=== PATIENT | female | born 1975 | race Caucasian/White ===

== ENCOUNTER 2019-04-03 12:59 | Outpatient (CLI) | payer OTHER, BC, SELFPAY ==
--- NOTE | ~2019-04-03 | NM_ITS ---
EXAMINATION: NM hepatobiliary w pharm DATE: 04/03/2019 15:11 INDICATION: Unspecified abdominal pain. COMPARISON: Head CT 03/27/2019 TECHNIQUE: 4.7 mCi Tc-99m mebrofenin (Choletec) was administered intravenously. Scintigraphic images of the abdomen were obtained for one hour. Then, 1.59 mcg sincalide (Kinevac) IV was administered, a nd imaging was continued for 30 minutes. FINDINGS: There is normal clearance of radiotracer from the blood pool. There is homogeneous tracer u ptake by the liver. Activity progresses to the bowel and gallbladder. Gallbladder ejection fraction (GBEF) was 13%. Note that most patients with gallbladder dysfunction have GBEF < 35%, which overlaps with the broad normal range of 10-90%. IMPRESSION: 1. Gallbladder ejection fraction in the lower range of normal. Note that this value overlaps with th e range of values that may be seen with gallbladder dysfunction and/or chronic cholecystitis if there is appropriate clinical correlation. Reviewed, dictated and finalized at location A. 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 Gallbladder ejection fraction in the lower range of normal. Note that this value overlaps with the range of values that may be seen with gallbladder dysfu nction and/or chronic cholecystitis if there is appropriate clinical correlatio nElda
== END 2019-04-03 13:00 | disposition home or self-care (01) ==
PROVIDERS: PCP Family Medicine; Visit Provider Nurse Practitioner Family
DX: R10.9 Unspecified abdominal pain (principal); R14.0 Abdominal distension (gaseous)
CPT/HCPCS: 78227; A9537; J2805

== ENCOUNTER → 2019-04-12 07:46 | Outpatient (CLI) | payer OTHER, BC, SELFPAY ==
--- NOTE | ~2019-04-12 | US_ITS ---
US abdomen limited DATE: 04/12/2019 08:27 INDICATION: Right upper quadrant abdominal pain, back pain. Constipation. TECHNIQUE: Real-time imaging of the liver, pancreas, gallbladder areas COMPARISON: 03/27/2019 CT abdomen pelvis 04/03/2019 radionuclide hepatobiliary scan FINDINGS: No hepatic or pancreatic space-occupying mass lesion is evident. Normal hepatic portal veno us flow direction. No gallstones or gallbladder wall thickening or abnormal pericholecystic fluid collection. Negative s onographic Trevino's sign. The common bile duct measures 3.4 mm, normal. IMPRESSION: Normal examination Reviewed, dictated and finalized at Location A. Reviewed, dictated and finalized at location B. 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
== END ==
PROVIDERS: Visit Provider Surgery
DX: R10.11 Right upper quadrant pain (principal)
CPT/HCPCS: 76705

== ENCOUNTER 2019-04-30 15:19 | Outpatient (CLI) | payer OTHER, BC, SELFPAY ==
[2019-04-30 15:52] LABS: Alanine Aminotransferase 22 U/L (4-35); Albumin Level 4.9 g/dL (3.5-5.1); Alkaline Phosphatase 70 U/L (38-126); Amylase 86 U/L (30-110); Aspartate Amino Transferase 31 U/L (14-36); Bilirubin,Total 0.4 mg/dL (0.2-1.3); Lipase 173 U/L (23-300)
== END 2019-04-30 15:20 | disposition home or self-care (01) ==
LOC: ANHSURGERY 15:24
PROVIDERS: PCP Family Medicine; Visit Provider Surgery
DX: K81.1 Chronic cholecystitis (principal); Z01.812 Encounter for preprocedural laboratory examination
CPT/HCPCS: 36415; 80076; 82150; 83690; 86850; 86900; 86901

== ENCOUNTER 2019-05-10 00:17 | Day surgery (SDC) | payer OTHER, BC, SELFPAY ==
[2019-04-30 09:15] VITALS: BMI 29.2
--- NOTE | 2019-05-09 16:56 | PM.SD ---
Same Day Admit/Disch: HPI History of Present Illness Chief complaint: Chronic Cholecystitis Narrative: Carolynn Le is a 43 year old female who has been experiencing postprandial right upper quadrant abdominal pain. She went to the emergency room in late March with this. CT scan was negative. Subsequent HIDA scan however showed a very low gallbladder ejection fraction of 13%. She had an ultrasound which also was negative for gallstones. She was seen in the office and is taken to surgery now for laparoscopic cholecystectomy. PMFSH Past Medical History Medical History Hypothyroid Surgical History Surgical History S/P tube myringotomy Family History Family History Sibling Hypertension Patient's brother is in good health Father Patient's father is in good health Mother Family history of diabetes mellitus in first degree relative Grandparent Family history of malignant neoplasm of breast Social History Social History Social History: Smoking status: Never smoker Second hand tobacco smoke exposure: No Alcohol intake: former Substance use: never Substance use type: does not use Gender identity (if verbalized by the patient): Female Same Day Admit/Disch: Med Pre-admit Medications Home Medications Medication Instructions Recorded Confirmed Type levothyroxine 75 mcg tablet 75 mcg PO DAILY #90 tablet 03/26/19 05/10/19 Rx famotidine 40 mg PO DAILY #30 tablet 03/27/19 05/10/19 Rx Hair, Skin, Nails with Biotin 1 tablet PO DAILY 04/30/19 05/10/19 History Metamucil 1 tbsp PO BID 04/30/19 05/10/19 History ascorbic acid (vitamin C) [Vitamin 500 mg PO DAILY 04/30/19 05/10/19 History C] cholecalciferol (vitamin D3) 1,000 unit PO DAILY 04/30/19 05/10/19 History [Vitamin D3] cyanocobalamin (vitamin B-12) 1,000 mcg PO DAILY 04/30/19 05/10/19 History [Vitamin B-12] ranitidine HCl 150 mg PO BID 04/30/19 05/10/19 History zinc 50 mg PO DAILY 04/30/19 05/10/19 History hydrocodone-acetaminophen 1 - 2 tablet PO Q6H PRN #7 tablet 05/10/19 Rx ibuprofen 600 mg PO Q6H PRN #14 tablet 05/10/19 Rx Exam Const: General: comfortable, no acute distress, alert and awake HENMT: Head: normocephalic and atraumatic Mouth: Yes Normal oral and palatal mucosa present Eyes: Conjunctivae: conjunctivae normal Pupils: Equal, round and reactive pupils present EOM: EOMs intact bilaterally Neck: Neck: normal visual inspection, no lymphadenopathy and nontender Resp: Effort & Inspection: normal respiratory effort Auscultation: clear to auscultation bilaterally Cardio: Rate: regular rate Rhythm: regular rhythm Heart sounds: no gallops, no murmurs and no rubs GI: Inspection: normal to inspection and non-distended GI Palp: Yes Soft to palpation, Yes Tenderness to palpation present (GI) (Mild right upper quadrant tenderness), No Guarding due to palpation present (GI), No Hepatomegaly present, No Splenomegaly present and No Rebound tenderness present Auscultation: normal bowel sounds Skin: Lesions: no lesions Rashes: no rashes Neuro: General: no focal motor deficits and CN's II-XI intact bilaterally Cranial nerves: Yes Equal, round and reactive pupils present, Yes Bilaterally intact EOM present, Yes facial symmetry and Yes Midline tongue present Speech: normal speech Motor exam (neuro): 5/5 motor strength present throughout and Motor abnormalities not present Extrem: General: no clubbing, cyanosis or edema and edema Psych: Affect: normal affect Thought process: Normal thought process present Insight: Good insight present (Psych) DS: Summary Time Spent with Patient Time attestation: Total time spent providing and/or coordinating discharge services: DS: Diagnosis Admitting Diagnosis Admit
[2019-05-10] VITALS (8 sets, daily range): BP systolic 110–151; BP diastolic 63–81; PULSE 52–70; RESP 14–20; TEMP 36.8–37.2; O2SAT 95–100
--- NOTE | 2019-05-10 10:51 | P.OP_ITS ---
Procedure Note - Detailed Date of procedure: 05/10/19 Pre-op diagnosis: Chronic Cholecystitis Acalculous chronic cholecystitis Post-op diagnosis: same Procedure performed: Laparoscopic cholecystectomy Description of procedure: The patient was taken to surgery and induced into general anesthesia. The abdomen was prepped and draped. Trocars were placed in the usual fashion using 0.5% Marcaine with epinephrine and applied Medical optical trocars. A 5 millimeter camera was used. The gallbladder was decompressed with a laparoscopic aspirator. The cholecystotomy was closed with a Vicryl endo-loop. The gallbladder was retracted anterosuperiorly. The lateral segment of the left lobe of the liver curved back around obstructing our view of the gallbladder. An extra 5 mm port was placed in the left mid abdomen. A blunt retractor was then used to retract the left lobe of the liver lateral segment out of our view so we could proceed with dissection. Traction was placed on the infundibulum. The cystic duct and cystic artery were dissected out very clearly. The gallbladder was dissected off the liver at its lower 3rd. Critical view was achieved. We securely clipped and divided the cystic duct and cystic artery. The gallbladder was then further retracted so that the peritoneal attachments to the liver could be divided. Once the gallbladder was freed entirely, it was placed in an Endo-Catch bag and retrieved through the 10 11 epigastric trocar site. The epigastric trocar was then replaced. We reviewed the right upper quadrant. It was irrigated and suctioned. All looked good with no evidence of bleeding or bile leakage. We evacuated CO2 and removed the trocar sleeves. The fascia at the epigastric trocar site was closed with 0 Vicryl suture. Skin wounds were closed with s ubcuticular 4 O Monocryl skin suture. The wounds were dressed with Exofin surgical adhesive. Patient was awakened and taken to recovery in good condition. Sponge and needle counts were correct x2. Anesthesia: GETA and local (0.5% Marcaine with epinephrine) Surgeon: Jose Schultz MD Critical Care Cns: Mary Lou EGAN Estimated blood loss (mL): 5 Drains: No Packing: No Pathology: yes (Gallbladder) Complications: None Condition: stable Disposition: PACU Findings: Mild inflammation, no stones noted. No biliary ductal dilatation, no liver abnormalities.
[2019-05-10] MEDS: LACTATED RINGERS 1,000 ML 30 ML IV CONT ×2 (13:00→16:05)
--- NOTE | 2019-05-10 13:24 | WPDANESEPPF ---
Anes - Initial Pre Proc Eval Procedure: Operation Date: 05/10/19 14:30 Proposed Procedures p Laparoscopic Cholecystectomy - Jose Schultz MD Date/Time: 05/10/19 13:24 Surgeon: Jose Schultz MD Pre Op Diagnosis: Chronic Cholecystitis Patient Data Age: 43 Gender: F Height: 1.57 m Weight: 72.8 kg Allergies Allergy/AdvReac Type Severity Reaction Status Date / Time No Known Allergies Allergy Verified 05/10/19 13:14 Home Medications Medication Instructions Recorded Confirmed Type levothyroxine 75 mcg tablet 75 mcg PO DAILY #90 tablet 03/26/19 05/10/19 Rx famotidine 40 mg PO DAILY #30 tablet 03/27/19 05/10/19 Rx Hair, Skin, Nails with Biotin 1 tablet PO DAILY 04/30/19 05/10/19 History Metamucil 1 tbsp PO BID 04/30/19 05/10/19 History ascorbic acid (vitamin C) [Vitamin 500 mg PO DAILY 04/30/19 05/10/19 History C] cholecalciferol (vitamin D3) 1,000 unit PO DAILY 04/30/19 05/10/19 History [Vitamin D3] cyanocobalamin (vitamin B-12) 1,000 mcg PO DAILY 04/30/19 05/10/19 History [Vitamin B-12] ranitidine HCl 150 mg PO BID 04/30/19 05/10/19 History zinc 50 mg PO DAILY 04/30/19 05/10/19 History hydrocodone-acetaminophen 1 - 2 tablet PO Q6H PRN #7 tablet 05/10/19 Rx ibuprofen 600 mg PO Q6H PRN #14 tablet 05/10/19 Rx Patient hx anesthesia problems: none Family hx anesthesia problems: none PMFSH Past Medical History Medical History Hypothyroid Surgical History Surgical History S/P tube myringotomy Family History Family History Sibling Hypertension Patient's brother is in good health Father Patient's father is in good health Mother Family history of diabetes mellitus in first degree relative Grandparent Family history of malignant neoplasm of breast Social History Social History Social History: Smoking status: Never smoker Second hand tobacco smoke exposure: No Alcohol intake: former Substance use: never Substance use type: does not use Gender identity (if verbalized by the patient): Female Anes - Eval Final PreProcedure Day of Procedure 05/10/19 13:24 Patient weight: overweight Heart: regular rate and rhythm Lungs: clear to auscultation and normal air movement Airway: Mallampati scale class 1 Neurological: alert and oriented Last oral intake: >/= 8 hours ASA classification: II Emergent: no Anesthetic plan: proceed Anesthesia type and monitoring: general ETT and standard monitoring Informed Consent: The patient's anesthetic plan and its attendant risks and benefits were discussed with the patient/family/POA. Questions were solicited and answers provided to the satisfaction of the patient/family/POA.
--- NOTE | 2019-05-10 14:56 | WPDHPUPDATE1 ---
History and Physical Update Update Date/Time: 05/10/19 14:56 History and Physical has been reviewed, including an updated exam of the patient. There are NO changes in the patient's condition. Risks, benefits, and alternatives have been discussed and questions answered. Patient agrees to proceed with procedure.
[2019-05-10] MEDS: ceFAZolin 2 GM/D5W 50 ML 2 GM/50 ML BAG IVPB (15:12)
[2019-05-10] MEDS: BUPIVACAINE/EPINEPHRINE 0.5% 30 ML VIAL 20 ML INFILTRATE (15:43)
== END 2019-05-10 18:15 | disposition home or self-care (01) ==
PROVIDERS: PCP Family Medicine; Visit Provider Surgery
PROC: 0FT44ZZ Resection of Gallbladder, Percutaneous Endoscopic Approach (ICD-10-PCS; CPT 47562; principal; 2019-05-10 14:30)
DX: K81.1 Chronic cholecystitis (principal); E03.9 Hypothyroidism, unspecified
CPT/HCPCS: 47562; 88304; A9270; C1713; J0690; J1100; J1170; J2250; J2405; J2704; J2710; J3010; J7030; J7120

== ENCOUNTER → 2020-04-14 09:30 | Outpatient (CLI) | payer OTHER, BC, SELFPAY ==
--- NOTE | ~2020-04-14 | CT_ITS ---
EXAMINATION: CT diagnostic chest wo con DATE: 04/14/2020 09:43 INDICATION: Follow-up pulmonary nodule TECHNIQUE: Computed tomography (CT) of the chest was performed without intravenous contrast. The dose -length product was 66.80 mGy-cm. Automated exposure control and iterative reconstruction technique w ere employed. COMPARISON: None FINDINGS: No significant pleural or pericardial effusion. Heart size upper normal. No thoracic lympha denopathy. Stable 6 mm lingular nodule, image 56. There is a 6 mm right minor fissural nodule, image 49, only partially visualized on prior examination. No focal airspace consolidation. No endobronchial lesions. No acute osseous abnormality. No osteolytic or osteoblastic lesions. IMPRESSION: 1. Bilateral 6 mm pulmonary nodules with the lingular nodule unchanged. The fissural nodule in the ri ght was only partially visualized on prior examination. These are likely benign. Twelve-month interva l follow-up low dose CT chest recommended to assess stability. Reviewed, dictated and finalized at location B. CAB DRIVER IMPRESSION: 1. Bilateral 6 mm pulmonary nodules with the lingular nodule unchanged. The fis sural nodule in the right was only partially visualized on prior examination. T hese are likely benign. Twelve-month interval follow-up low dose CT chest recom mended to assess stability.
== END ==
PROVIDERS: PCP Family Medicine; Visit Provider Family Medicine
DX: R91.1 Solitary pulmonary nodule (principal)
CPT/HCPCS: 71250

== ENCOUNTER → 2020-05-27 15:32 | Outpatient (CLI) | payer OTHER, BC, SELFPAY ==
--- NOTE | ~2020-05-27 | MM_ITS ---
EXAMINATION: MM screening howie BI w ale HISTORY: Baseline screening mammogram TECHNIQUE: Craniocaudal and mediolateral oblique 3-D tomosynthesis images were obtained and synthetic 2-D images were generated. CAD analysis was submitted and interpreted. COMPARISON: None, baseline BREAST PARENCHYMAL COMPOSITION: There are scattered areas of fibroglandular density. FINDINGS: RIGHT BREAST: A mass is present in the posterior third of the lower-outer breast best appreciated 6.5 cm from the nipple on the craniocaudal view. LEFT BREAST: There is no evidence of suspicious mass, calcification, or architectural distortion to s uggest malignancy. IMPRESSION: 1. Right breast mass. 2. Additional mammographic views and possible breast ultrasound are recommended to evaluate for malig nany and establish a baseline given that this is the first mammographic examination. BI-RADS Category 0: Incomplete: Needs additional imaging evaluation. Reviewed, dictated and finalized at location A. IMPRESSION: 1. Right breast mass. 2. Additional mammographic views and possible breast ultrasound are recommended to evaluate for malignancy and establish a baseline given that this is the fir st mammographic examination. BI-RADS Category 0: Incomplete: Needs additional imaging evaluation.
== END ==
PROVIDERS: PCP Family Medicine; Visit Provider Family Medicine
DX: Z12.31 Encounter for screening mammogram for malignant neoplasm of breast (principal); R92.8 Other abnormal and inconclusive findings on diagnostic imaging of breast
CPT/HCPCS: 77063; 77067

== ENCOUNTER → 2020-06-23 14:10 | Outpatient (CLI) | payer OTHER, BC, SELFPAY ==
--- NOTE | ~2020-06-23 | MMUS_ITS ---
EXAMINATION: MM diagnostic mammo unilat RT, US breast RT limited HISTORY: Right breast mass reported in posterior third of lower outer breast 6.5 cm from nipple on sc reening craniocaudal view of 05/27/2020 TECHNIQUE: Additional 3-D tomosynthesis images of the right breast were performed and synthetic 2-D i mages were generated. CAD analysis was submitted and interpreted. High resolution upper outer and low er-outer right breast ultrasound was performed. COMPARISON: 05/27/2020 bilateral digital screening mammogram FINDINGS: MAMMOGRAPHIC FINDINGS: There is a circumscribed 4.5 x 6.4 mm opacity in the very posterior aspect of the upper outer right b reast. A 6 mm mass is noted posteriorly in the lower outer right breast (MLO Tomosynthesis image ; cran iocaudal Tomosynthesis image )) ULTRASOUND: 10:00 7 cm from nipple: There is a parallel circumscribed hyperechoic approximately 7 x 11 mm lesion without internal vascularity or posterior shadowing. 8:00 6 cm from nipple: There is an irregular hypoechoic 2.7 x 5.5 x 4.1 mm hypoechogenicity. There is some ill-defined posterior shadowing in this region. Ultrasound-guided biopsy is recommended. IMPRESSION: 1. Suspicious irregular hypoechogenic lesion o'clock 6 cm from nipple 2. Ultrasound-guided biopsy is recommended BI-RADS category 4, suspicious findings. Dr. Olson telephoned the report and biopsy recommendation on 06/23/2020 at 1508 hours to [facility]. Reviewed, dictated and finalized at location A. IMPRESSION: 1. Suspicious irregular hypoechogenic lesion o'clock 6 cm from nipple 2. Ultrasound-guided biopsy is recommended BI-RADS category 4, suspicious findings. Dr. Olson telephoned the report and biopsy recommendation on 06/23/2020 at 1508 h ours to [facility]. IMPRESSION: 1. Suspicious irregular hypoechogenic lesion o'clock 6 cm from nipple 2. Ultrasound-guided biopsy is recommended BI-RADS category 4, suspicious findings. Dr. Olson telephoned the report and biopsy recommendation on 06/23/2020 at 1508 h ours to [facility].
== END ==
PROVIDERS: PCP Family Medicine; Visit Provider Physician Assistant
DX: N63.13 Unspecified lump in the right breast, lower outer quadrant (principal); N63.11 Unspecified lump in the right breast, upper outer quadrant
CPT/HCPCS: 76642; 77065

== ENCOUNTER 2020-06-26 15:37 | Outpatient (CLI) | payer OTHER, BC, SELFPAY ==
--- NOTE | ~2020-06-26 | XR_ITS ---
XR foot RT min 3V 06/26/2020 16:06 Indication: Foot swelling Procedure: 4 views right foot Comparison: No prior studies for comparison. Findings: There is a fracture of the fifth middle phalanx, age indeterminate. Mild osteoarthritis fir st MTP joint. Small degenerative calcaneal enthesophyte. Impression: 1: Minimally displaced intra-articular right fifth middle phalanx. Reviewed, dictated and finalized at location A. Impression: 1: Minimally displaced intra-articular right fifth middle phalanx.
--- NOTE | ~2020-06-26 | US_ITS ---
EXAMINATION:US venous doppler LE RT INDICATION:Right leg pain TECHNIQUE: Multiple grayscale, color flow and Doppler images of the right lower extremity deep venous systems were obtained and reviewed. COMPARISON:No prior studies for comparison. FINDINGS: The common femoral, superficial femoral and popliteal veins demonstrate normal respiratory variation, augmentation and compressibility. Color flow is also seen within the posterior tibial, pe roneal, greater saphenous and profunda veins. IMPRESSION: 1: No lower extremity deep venous thrombosis. Reviewed, dictated and finalized at location A.
== END 2020-06-26 15:38 | disposition home or self-care (01) ==
LOC: ANHIMG 15:46
PROVIDERS: PCP Family Medicine; Visit Provider Family Medicine
DX: R60.9 Edema, unspecified (principal); M79.673 Pain in unspecified foot; S92.351A Displaced fracture of fifth metatarsal bone, right foot, initial encounter for closed fracture
CPT/HCPCS: 73630; 93971

== ENCOUNTER 2020-07-13 10:02 | Outpatient (CLI) | payer OTHER, BC, SELFPAY ==
--- NOTE | ~2020-07-13 | MMUS_ITS ---
EXAMINATION: US breast biopsy RT w image, MM post biopsy invasive RT DATE: 07/13/2020 11:42 (accession [id number]), 07/13/2020 12:32 (accession [id number]) INDICATION: Right breast mass at the 8:00 location. Ultrasound-guided core biopsy is requested to gil gibbons for malignancy. TECHNIQUE AND FINDINGS: The risks and potential benefits of the procedure were discussed with the patient including bleeding and infection. A time out was performed. The skin of the right breast was prepared and draped in usua l sterile fashion. 1% lidocaine was used for superficial anesthesia. 1% lidocaine with epinephrine wa s used for deep anesthesia. A vacuum-assisted biopsy gun needle was advanced through to the outer edge of the region of interest from a medial approach utilizing sonographic guidance. A total of two tissue core samples were obtain ed through the lesion. The area of concern was not visualized after the second pass. A tissue marker clip was then placed at the biopsy site. Hemostasis was achieved. A sterile bandage was applied. The patient tolerated procedure well and there was no evidence of immediate complication. The patient was given verbal instructions to return to the Emergency Department in the event of severe breast pa in or rapid breast enlargement. A two view right breast mammogram was obtained to document tissue mar ker clip placement. IMPRESSION: 1. Successful ultrasound-guided vacuum-assisted biopsy of right breast mass with tissue marker placem ent. Reviewed, dictated and finalized at location A. IMPRESSION: 1. Successful ultrasound-guided vacuum-assisted biopsy of right breast mass wit h tissue marker placement.
== END 2020-07-13 10:03 | disposition home or self-care (01) ==
LOC: ANHIMG 10:05
PROVIDERS: PCP Family Medicine; Visit Provider Physician Assistant
DX: N63.10 Unspecified lump in the right breast, unspecified quadrant (principal)
CPT/HCPCS: 19083; 88305; A4648

== ENCOUNTER → 2020-11-19 00:16 | Outpatient (CLI) | payer OTHER, BC, SELFPAY ==
[2020-11-19 19:52] LABS: SARS-CoV-2 RNA PCR Negative
== END ==
PROVIDERS: PCP Family Medicine; Visit Provider Physician Assistant
DX: Z20.822 Contact with and (suspected) exposure to COVID-19 (principal)
CPT/HCPCS: C9803; U0003; U0005

== ENCOUNTER → 2020-11-26 01:33 | Outpatient (CLI) | payer OTHER, BC, SELFPAY ==
[2020-11-26 17:06] LABS: SARS-CoV-2 RNA PCR Negative
== END ==
PROVIDERS: PCP Family Medicine; Visit Provider Physician Assistant
DX: Z20.822 Contact with and (suspected) exposure to COVID-19 (principal)
CPT/HCPCS: C9803; U0003; U0005

== ENCOUNTER → 2020-12-03 02:39 | Outpatient (CLI) | payer OTHER, BC, SELFPAY ==
[2020-12-03 16:56] LABS: SARS-CoV-2 RNA PCR Negative
== END ==
PROVIDERS: Physician Assistant; PCP Family Medicine; Visit Provider Family Medicine
DX: Z20.822 Contact with and (suspected) exposure to COVID-19 (principal)
CPT/HCPCS: C9803; U0003; U0005

== ENCOUNTER → 2020-12-09 03:23 | Outpatient (CLI) | payer OTHER, BC, SELFPAY ==
[2020-12-09 18:04] LABS: SARS-CoV-2 RNA PCR Negative
== END ==
PROVIDERS: PCP Family Medicine; Visit Provider Family Medicine
DX: Z20.828 Contact with and (suspected) exposure to other viral communicable diseases (principal)
CPT/HCPCS: C9803; U0003; U0005

== ENCOUNTER → 2020-12-17 02:38 | Outpatient (CLI) | payer OTHER, BC, SELFPAY ==
[2020-12-17 18:09] LABS: SARS-CoV-2 RNA PCR Negative
== END ==
PROVIDERS: Physician Assistant; PCP Family Medicine; Visit Provider Family Medicine
DX: Z20.822 Contact with and (suspected) exposure to COVID-19 (principal); R68.89 Other general symptoms and signs
CPT/HCPCS: C9803; U0003; U0005

== ENCOUNTER → 2020-12-24 02:53 | Outpatient (CLI) | payer OTHER, BC, SELFPAY ==
[2020-12-24 17:42] LABS: SARS-CoV-2 RNA PCR Negative
== END ==
PROVIDERS: PCP Family Medicine; Visit Provider Family Medicine
DX: R68.89 Other general symptoms and signs (principal); Z20.822 Contact with and (suspected) exposure to COVID-19
CPT/HCPCS: C9803; U0003; U0005

== ENCOUNTER → 2020-12-31 01:34 | Outpatient (CLI) | payer OTHER, BC, SELFPAY ==
[2020-12-31 17:33] LABS: SARS-CoV-2 RNA PCR Negative
== END ==
PROVIDERS: PCP Family Medicine; Visit Provider Family Medicine
DX: R68.89 Other general symptoms and signs (principal); Z20.822 Contact with and (suspected) exposure to COVID-19
CPT/HCPCS: C9803; U0003; U0005

== ENCOUNTER → 2021-01-07 01:41 | Outpatient (CLI) | payer OTHER, BC, SELFPAY ==
[2021-01-07 22:24] LABS: SARS-CoV-2 RNA PCR Negative
== END ==
PROVIDERS: Nurse Practitioner Gerontology; PCP Family Medicine; Visit Provider Family Medicine
DX: Z20.822 Contact with and (suspected) exposure to COVID-19 (principal)
CPT/HCPCS: C9803; U0003; U0005

== ENCOUNTER → 2021-01-14 03:06 | Outpatient (CLI) | payer OTHER, BC, SELFPAY ==
[2021-01-14 17:50] LABS: SARS-CoV-2 RNA PCR Positive
== END ==
PROVIDERS: Nurse Practitioner Gerontology; PCP Family Medicine; Visit Provider Family Medicine
DX: U07.1 COVID-19 (principal)
CPT/HCPCS: C9803; U0003; U0005

== ENCOUNTER → 2021-02-04 04:09 | Outpatient (CLI) | payer OTHER, BC, SELFPAY ==
[2021-02-04 17:37] LABS: SARS-CoV-2 RNA PCR Negative
== END ==
PROVIDERS: PCP Family Medicine; Visit Provider Nurse Practitioner Gerontology
DX: Z20.822 Contact with and (suspected) exposure to COVID-19 (principal)
CPT/HCPCS: C9803; U0003; U0005

== ENCOUNTER 2021-02-15 09:04 | Emergency (ER) | payer OTHER, BC, SELFPAY ==
--- NOTE | ~2021-02-15 | US_ITS ---
EXAMINATION: US OB <=14 wk fetus w TV DATE: 02/15/2021 09:54 INDICATION: Cramping. . TECHNIQUE: Real-time transabdominal and transvaginal pelvic ultrasound was performed. COMPARISON: None. FINDINGS: TRANSABDOMINAL ULTRASOUND: The uterus measures 8.5 x 6.0 x 6.9 cm. TRANSVAGINAL ULTRASOUND: There is an intrauterine gestational sac. A yolk sac is identified. The fet al crown rump length measures 0.7 cm, which correlates with an estimated gestational age of 6 weeks a nd 4 day(s) (+/-) 4 day(s). heart motion is identified measuring 136 beats per minute (bpm) by M-mode Doppler. There is a small subchorionic hematoma measuring 1.1 x 0.5 x 0.8 cm. The right ovary is not visualized. The left ovary measures 3.5 x 1.9 x 2.3 cm. There is no free fluid in the pelvis. IMPRESSION: 1. Single living intrauterine gestation with estimated date of delivery of 10/07/2021. 2. Small subchorionic hematoma. Reviewed, dictated and finalized at location A. HANDLER IMPRESSION: 1. Single living intrauterine gestation with estimated date of delivery of 10/07. 2. Small subchorionic hematoma.
[2021-02-15 09:20] VITALS: BP 133/84; PULSE 82; RESP 18; TEMP 36.9; O2SAT 99
--- NOTE | 2021-02-15 09:35 | PC.NURSE ---
Pt going to ultrasound
--- NOTE | 2021-02-15 10:00 | PC.NURSE ---
Cant give meds Dr. Prabhakar was in pt chart he is aware
[2021-02-15 10:22] LABS: Basophils Absolute Auto 0.1 K/mm3 (0.0-0.1); Basophils Percent Auto 1.2 % (0.2-1.2); Eosinophils Absolute Auto 0.2 K/mm3 (0-0.3); Eosinophils Percent Auto 1.6 % (0-4.4); Hemoglobin 14.9 g/dL (12.0-15.0); Immature Granulocyte Absolute 0.13 K/mm3 (0.00-0.031); Immature Granulocyte Percent A 1.3 % (0-0.5); Lymphocytes Percent Auto 17.6 % (18.3-44.2); Mean Corpuscular HGB Conc 34.7 g/dl (32-36); Mean Corpuscular Hemoglobin 33.3 pg (26-34); Mean Corpuscular Volume 96.2 fl (80-100); Mean Platelet Volume 9.4 fl (7.4-10.4); Monocytes Percent Auto 9.9 % (2.6-8.5); Neutrophils Absolute Auto 6.6 K/mm3 (1.3-6.7); Neutrophils Percent Auto 68.4 % (45.5-73.1); Platelet Count Result 393 k/mm3 (150-375); Red Blood Count 4.47 M/mm3 (4.2-5.4); Red Cell Distribution Width 13.4 % (11.5-14.5); White Blood Count 9.7 K/mm3 (4.5-10.0)
[2021-02-15 10:26] LABS: Add Urine Microscopic? YES; Appearance Urine Cloudy (Clear); Bacteria Urine Trace /hpf; Bilirubin Urine Negative (Negative); Blood Urine Negative (Negative); Color Urine Amber (Yellow); Glucose Urine UA Negative (Negative); Ketones Urine Negative (Negative); Leukocyte Esterase Ur Negative LEU/UL (Negative); Mucus Urine Rare /lpf; Nitrate Urine Negative (Negative); Protein Urine Negative (Negative); RBC Urine 0-2 /hpf (0-2); Specific Grav Ur 1.024 (1.001-1.035); Squamous Epithelial Cell Urine Many /hpf (Few); Urobilinogen Urine Negative mg/dL (<2.0); WBC Urine 0-3 /hpf
[2021-02-15] MEDS: SODIUM CHLORIDE 0.9% IV 1,000 ML 999 ML IV CONT (10:31)
[2021-02-15 10:33] LABS: Alanine Aminotransferase 25 U/L (4-35); Albumin Level 4.6 g/dL (3.5-5.1); Alkaline Phosphatase 81 U/L (38-126); Anion Gap 12 mmol/L (8-16); Aspartate Amino Transferase 30 U/L (14-36); Bilirubin,Total 0.4 mg/dL (0.2-1.3); Blood Urea Nitrogen 14 mg/dL (7-17); Calcium 9.6 mg/dL (8.4-10.2); Carbon Dioxide 21 mmol/L (22-30); Chloride 106 mmol/L (98-107); Estimated CRCL calculation 94 ml/min; Estimated Glomerular Filt Rate > 60; Glucose 115 mg/dL (65-110); Lipase 122 U/L (23-300); Potassium 3.7 mmol/L (3.4-5.0); Sodium 139 mmol/L (137-145)
--- NOTE | 2021-02-15 11:14 | ED.GENADULT ---
HPI - General Adult General Chief complaint: Abdominal Pain Stated complaint: Abd Pain Time Seen by Provider: 02/15/21 09:13 Source: patient Mode of arrival: ambulatory Limitations: no limitations History of Present Illness HPI narrative: Patient is a 45-year-old female with chief complaint of pelvic cramping that has been occurring since last week. Patient states that she has recently relocated to this area and has not yet established care with an TABULATING SUPERVISOR. Patient reports that she caught her old TABULATING SUPERVISOR and inform them of her discomfort and had a positive test on Monday and they told her to present to the nearest emergency department. Patient denies fever, chills, vaginal bleeding or discharge. Patient reports that she is G3, P1, and she reports her last was in 2005 and resulted in miscarriage. Patient has not been attempting to become . Patient reports that she has hypothyroidism but denies any other chronic illnesses. Patient denies recreational drug use. Related Data Home Medications Medication Instructions Recorded Confirmed Metamucil 1 tbsp PO BID 04/30/19 06/30/20 ascorbic acid (vitamin C) [Vitamin 500 mg PO DAILY 04/30/19 06/30/20 C] cholecalciferol (vitamin D3) 1,000 unit PO DAILY 04/30/19 06/30/20 [Vitamin D3] cyanocobalamin (vitamin B-12) 1,000 mcg PO DAILY 04/30/19 06/30/20 [Vitamin B-12] zinc 50 mg PO DAILY 04/30/19 06/30/20 Allergies Allergy/AdvReac Type Severity Reaction Status Date / Time No Known Allergies Allergy Verified 08/18/20 13:07 Review of Systems Review of Systems: CONSTITUTIONAL: Denies fever, chills, or sweats. EYES: Denies visual changes, redness, or discharge. ENT: Denies rhinorrhea, congestion, sore throat, or otalgia. CARDIOVASCULAR: Denies chest pain, palpitations, or edema. RESPIRATORY: Denies cough or dyspnea. GASTROINTESTINAL: denies abdominal pain, nausea, vomiting, or diarrhea. GENITOURINARY:Reports pelvic cramping Denies dysuria or hematuria. SKIN: Denies rash or itching. MUSCULOSKELETAL: Denies back pain, joint pain, or myalgia. NEUROLOGIC: Denies headache, numbness, dizziness, or weakness. PSYCHIATRIC: Denies anxiety or depression. [facility] Past Medical History Medical History Achilles tendonitis Chronic cholecystitis Chronic otitis media Hypothyroid Recurrent otitis media Surgical History Surgical History S/P cholecystectomy S/P tube myringotomy Family History Family History Sibling Hypertension Patient's brother is in good health Father Patient's father is in good health Mother Family history of diabetes mellitus in first degree relative Grandparent Family history of malignant neoplasm of breast Other Arthritis Social History Social History Social History: Second hand tobacco smoke exposure: No Alcohol intake: current Drinks per week: 2 Alcohol use details: rare Substance use: never Substance use type: does not use 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 Does not appear to be in discomfort. HEAD: Normocephalic, atraumatic. EYES: PERRLA and EOMI. CHEST: Clear to auscultation. No respiratory distress. No wheezes rales or rhonchi HEART: Regular rate and rhythm. No murmur heard. Normal peripheral pulses. ABDOMEN: Soft, reports tenderness to palpation to right and left of lower pelvis. EXTREMITIES: Normal range of motion. No edema. SKIN: Warm, dry, no rash. NEURO: No focal deficits. Alert and oriented x3. PSYCH: Normal mood and
[2021-02-15 11:38] VITALS: BP 129/70; PULSE 71; RESP 18; O2SAT 99
== END 2021-02-15 11:40 | disposition home or self-care (01) ==
PROVIDERS: Physician Assistant; Emergency Provider Emergency Medicine; PCP Family Medicine
DX: O46.8X1 Other antepartum hemorrhage, first trimester (principal); O99.281 Endocrine, nutritional and metabolic diseases complicating pregnancy, first trimester; E03.9 Hypothyroidism, unspecified; Z3A.01 Less than 8 weeks gestation of pregnancy
CPT/HCPCS: 36415; 76801; 76817; 80053; 81001; 81025; 83690; 84702; 85025; 96361; 96374; 99284; J0131; J7030

== ENCOUNTER → 2022-02-16 10:28 | Outpatient (CLI) | payer OTHER, BC, SELFPAY ==
--- NOTE | ~2022-02-16 | CT_ITS ---
EXAMINATION: CT diagnostic chest wo con DATE: 02/16/2022 10:51 INDICATION: Lung nodule follow-up TECHNIQUE: Computed tomography (CT) of the chest was performed without intravenous contrast. The dose -length product (DLP) was 75.49 mGy-cm. Automated exposure control and iterative reconstruction techn ique were employed. COMPARISON: 04/14/2020, 03/27/2019 FINDINGS: A 6 mm nodule of the lingula is stable since the 2019 comparison. There is stable 5 mm lymp h node in the minor fissure on the right. No new pulmonary nodules are identified. The lungs are free of acute opacities. No pleural effusion or pneumothorax. No pathologically enlarged thoracic lymph n odes are identified. The heart size is normal. There is a small sliding hiatal hernia. A 3.5 cm cyst is noted in the spleen. The gallbladder is surgically absent. IMPRESSION: 1. Stable pulmonary nodules, most consistent with benign nodules. Reviewed, dictated and finalized at location A. 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
== END ==
PROVIDERS: PCP Nurse Practitioner Gerontology; Visit Provider Nurse Practitioner Gerontology
DX: R91.1 Solitary pulmonary nodule (principal); R91.8 Other nonspecific abnormal finding of lung field
CPT/HCPCS: 71250

== ENCOUNTER 2022-03-30 11:19 | Day surgery (SDC) | payer OTHER, BC, SELFPAY ==
[2022-03-17 11:45] VITALS: BMI 30.6
--- NOTE | 2022-03-30 09:51 | WPDANESEPPF ---
Anes - Initial Pre Proc Eval Procedure: Operation Date: 03/30/22 14:30 Proposed Procedures p Screening Colonoscopy - Atilio Bautista MD Date/Time: 03/30/22 09:51 Surgeon: Atilio Bautista MD Pre Op Diagnosis: Neoplasm Screening Patient Data Age: 46 Gender: F Height: 1.57 m Weight: 76 kg Allergies Allergy/AdvReac Type Severity Reaction Status Date / Time No Known Allergies Allergy Verified 03/30/22 12:01 Home Medications Medication Instructions Recorded Confirmed Type ascorbic acid (vitamin C) 500 mg 500 mg PO DAILY 04/30/19 03/30/22 History tablet (Vitamin C) cholecalciferol (vitamin D3) 25 1,000 unit PO DAILY 04/30/19 03/30/22 History mcg (1,000 unit) capsule (Vitamin D3) psyllium husk 3.4 gram/5.4 gram 1 tbsp PO BID 04/30/19 03/30/22 History oral powder (Metamucil) zinc 50 mg tablet 50 mg PO DAILY 04/30/19 03/30/22 History levothyroxine 75 mcg tablet 75 mcg PO DAILY #90 tabs 02/18/22 03/30/22 Rx (Synthroid) Patient hx anesthesia problems: none Family hx anesthesia problems: none Results Review: All pre-operative results and documents have been reviewed as part of the pre-operative evaluation. [facility] Past Medical History Medical History Achilles tendonitis Chronic cholecystitis Chronic otitis media Hypothyroid Recurrent otitis media Surgical History Surgical History S/P cholecystectomy S/P tube myringotomy Family History Family History Sibling Hypertension Patient's brother is in good health Father Patient's father is in good health Mother Family history of diabetes mellitus in first degree relative Grandparent Family history of malignant neoplasm of breast Other Arthritis Social History Social History Social History: Smoking status: Never smoker Second hand tobacco smoke exposure: No Alcohol intake: current Drinks per week: 2 Alcohol use details: rare Substance use: never Substance use type: does not use Living arrangements: with family 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e Patient): Straight or Heterosexual Spiritual care concerns: No Anes - Eval Final PreProcedure Day of Procedure 03/30/22 09:51 Patient weight: overweight Heart: regular rate and rhythm Lungs: clear to auscultation and normal air movement Airway: Mallampati scale class 1 Neurological: alert and oriented Last oral intake: >/= 8 hours ASA classification: II Emergent: no Anesthetic plan: proceed Anesthesia type and monitoring: general GIVS and standard monitoring Results Review: All pre-operative results and documents have been reviewed as part of the pre-operative evaluation. Informed Consent: The patient's anesthetic plan and its attendant risks and benefits were discussed with the patient/family/POA. Questions were solicited and answers provided to the satisfaction of the patient/family/POA.
[2022-03-30 11:55] VITALS: BP 128/94; PULSE 97; RESP 20; TEMP 36.7; O2SAT 100
[2022-03-30] MEDS: LACTATED RINGERS 1,000 ML 150 ML IV CONT (12:15)
--- NOTE | 2022-03-30 12:44 | PM.HPGS ---
History of Present Illness History of Present Illness Consent: Risks, benefits, and alternatives have been discussed and questions answered. Patient agrees to proceed with procedure. Chief complaint: Neoplasm Screening Narrative: Carolynn Le is a 46 year old female here for first screening colonoscopy Review of Systems Constitutional: Constitutional: Denies headache(s) and Denies weakness Eyes: Eyes: Denies blurry vision ENT: Reports Normal hearing present, Denies headache(s) and Denies neck pain Cardiovascular: Cardiovascular: Denies chest pain and Denies dyspnea Respiratory: Respiratory: Denies dyspnea Gastrointestinal: Gastrointestinal: Reports no additional gastrointestinal complaints Genitourinary: Genitourinary: Denies dysuria Musculoskeletal: Musculoskeletal: Denies neck pain Integumentary/Breasts: Skin/Breast: Denies dry skin Neurologic: Reports Normal hearing present, Denies headache(s) and Denies weakness Psychiatric: Psychiatric: Denies anxiety Endocrine: Endocrine: Denies change in body appearance Hematologic/Lymphatic: Hematologic/Lymphatic: Denies easy bleeding Allergic/Immunologic: Allergic/Immunologic: Denies urticaria PMFSH Past Medical History Medical History Achilles tendonitis Chronic cholecystitis Chronic otitis media Hypothyroid Recurrent otitis media Surgical History Surgical History S/P cholecystectomy S/P tube myringotomy Family History Family History Sibling Hypertension Patient's brother is in good health Father Patient's father is in good health Mother Family history of diabetes mellitus in first degree relative Grandparent Family history of malignant neoplasm of breast Other Arthritis Social History Social History Social History: Smoking status: Never smoker Second hand tobacco smoke exposure: No Alcohol intake: current Drinks per week: 2 Alcohol use details: rare Substance use: never Substance use type: does not use Living arrangements: with family 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e Patient): Straight or Heterosexual Spiritual care concerns: No Meds Home Medications and Allergies Home Medications Medication Instructions Recorded Confirmed Type ascorbic acid (vitamin C) 500 mg 500 mg PO DAILY 04/30/19 03/30/22 History tablet (Vitamin C) cholecalciferol (vitamin D3) 25 1,000 unit PO DAILY 04/30/19 03/30/22 History mcg (1,000 unit) capsule (Vitamin D3) psyllium husk 3.4 gram/5.4 gram 1 tbsp PO BID 04/30/19 03/30/22 History oral powder (Metamucil) zinc 50 mg tablet 50 mg PO DAILY 04/30/19 03/30/22 History levothyroxine 75 mcg tablet 75 mcg PO DAILY #90 tabs 02/18/22 03/30/22 Rx (Synthroid) Allergies Allergy/AdvReac Type Severity Reaction Status Date / Time No Known Allergies Allergy Verified 03/30/22 12:01 Vital Signs Vital Signs - 24 hr 03/30/22 11:55 Temperature 98.1 F Pulse Rate 97 Respiratory Rate 20 Blood Pressure 128/94 H Pulse Oximetry 100 Oxygen Delivery Room Air Exam Const: General: comfortable and no acute distress HENMT: Face/Nose/Sinus: Normal nares present Eyes: General: appearance normal, both eyes and all related structures Neck: Neck: no JVD Resp: Auscultation: clear to auscultation bilaterally Cardio: Rate: regular rate Rhythm: regular rhythm GI: Inspection: non-distended GI Palp: Yes Soft to palpation Skin: General skin exam: normal color Neuro: General: gait normal Speech: normal speech Extrem: General: normal to inspection Psych: Mental Status: mental stat
[2022-03-30 13:06] VITALS: BP 123/85; PULSE 75; RESP 18; O2SAT 100
[2022-03-30 13:16] VITALS: BP 143/83; PULSE 71; RESP 20; O2SAT 100
[2022-03-30 13:26] VITALS: BP 143/94; PULSE 75; RESP 20; O2SAT 100
--- NOTE | 2022-03-30 13:53 | WPDANESPN ---
Anes - Prog Note Post-Op Date/Time: 03/30/22 13:53 Cardiovascular status: normal Respiratory status: normal Airway patency: baseline Mental status: baseline Post-Op hydration status: normal Vital Signs: Last Vital Signs Temp 36.7 C 03/30/22 11:55 Pulse 75 03/30/22 13:26 Resp 20 03/30/22 13:26 BP 143/94 H 03/30/22 13:26 Pulse Ox 100 03/30/22 13:26 O2 Del Method Room Air 03/30/22 13:26 Pain Score (VAS): 0 I/O: Intake & Output 03/29/22 03/30/22 03/30/22 23:59 07:59 15:59 Intake Total 200 Balance 200 Post-procedural complaints: none Patient Feedback: Patient satisfied with anesthetic care.
== END 2022-03-30 13:35 | disposition home or self-care (01) ==
PROVIDERS: PCP Family Medicine; Visit Provider Internal Medicine Gastroenterology
PROC: 0DJD8ZZ Inspection of Lower Intestinal Tract, Via Natural or Artificial Opening Endoscopic (ICD-10-PCS; CPT 45378; principal; 2022-03-30 14:30)
DX: Z12.11 Encounter for screening for malignant neoplasm of colon (principal)
CPT/HCPCS: 45378

== ENCOUNTER → 2022-05-19 07:33 | Outpatient (CLI) | payer OTHER, BC, SELFPAY ==
--- NOTE | ~2022-05-19 | US_ITS ---
Abdominal Sonogram: Real-time sonographic imaging of the abdomen was performed. Clinical History: Abnormal serum enzymes Findings: The liver appears echogenic, with no evidence of mass lesion or bile duct dilatation. Main portal vein demonstrates normal direction of flow. The spleen is normal in size without evidence of focal lesion. The gallbladder is absent, consistent with prior cholecystectomy. The common bile duct measures 3 mm. The visualized pancreas, aorta, and IVC are unremarkable. The right kidney measures 10.6 cm in length and the left kidney measures 10.5 cm. There is no hydronephrosis or renal calculu s. Impression: Diffuse fatty infiltration of the liver. Status post cholecystectomy. Reviewed, dictated and finalized at location . Impression: Diffuse fatty infiltration of the liver. Status post cholecystectomy.
== END ==
PROVIDERS: PCP Family Medicine; Visit Provider Physician Assistant
DX: R74.8 Abnormal levels of other serum enzymes (principal); K76.0 Fatty (change of) liver, not elsewhere classified
CPT/HCPCS: 76700

== ENCOUNTER → 2022-05-25 10:45 | Outpatient (CLI) | payer OTHER, SELFPAY ==
--- NOTE | ~2022-05-25 | MM_ITS ---
EXAMINATION: MM screening [facility] BI w ale HISTORY: Screening TECHNIQUE: Craniocaudal and mediolateral oblique 3-D tomosynthesis images were obtained and synthetic 2-D images were generated. CAD analysis was submitted and interpreted. COMPARISON: 05/27/2020 BREAST PARENCHYMAL COMPOSITION: The breasts are heterogeneously dense, which may obscure small masses . FINDINGS: There is a developing mass in the lower outer quadrant of the right breast posteriorly. The left breast is stable without evidence for malignancy. IMPRESSION: 1. Developing right breast mass, lower outer quadrant. 2. Additional mammographic views and possible breast ultrasound are recommended. BI-RADS Category 0: Incomplete: Needs additional imaging evaluation. Reviewed, dictated and finalized at location A. IMPRESSION: 1. Developing right breast mass, lower outer quadrant. 2. Additional mammographic views and possible breast ultrasound are recommended . BI-RADS Category 0: Incomplete: Needs additional imaging evaluation.
== END ==
PROVIDERS: PCP Family Medicine; Visit Provider Obstetrics & Gynecology Gynecology
DX: Z12.31 Encounter for screening mammogram for malignant neoplasm of breast (principal); R92.8 Other abnormal and inconclusive findings on diagnostic imaging of breast
CPT/HCPCS: 77063; 77067

== ENCOUNTER 2022-05-30 07:19 | Day surgery (SDC) | payer OTHER, BC, SELFPAY ==
[2022-05-23 14:03] VITALS: BMI 31.4
[2022-05-24 11:14] VITALS: BMI 31.4
[2022-05-30 07:50] VITALS: BP 141/93; PULSE 73; RESP 20; TEMP 36.6; O2SAT 100
[2022-05-30] MEDS: LACTATED RINGERS 1,000 ML 150 ML IV CONT (08:17)
--- NOTE | 2022-05-30 08:20 | WPDANESEPPF ---
Anes - Initial Pre Proc Eval Procedure: Operation Date: 05/30/22 09:00 Proposed Procedures p Esophagogastroduodenoscopy - Atilio Bautista MD Date/Time: 05/30/22 08:20 Surgeon: Atilio Bautista MD Pre Op Diagnosis: Unspecified Abdominal Pain Patient Data Age: 46 Gender: F Height: 1.57 m Weight: 77.5 kg Last Vital Signs Temp 36.6 C 05/30/22 07:50 Pulse 73 05/30/22 07:50 Resp 20 05/30/22 07:50 BP 141/93 H 05/30/22 07:50 Pulse Ox 100 05/30/22 07:50 O2 Del Method Room Air 05/30/22 07:50 Allergies Allergy/AdvReac Type Severity Reaction Status Date / Time No Known Allergies Allergy Verified 05/30/22 08:13 Home Medications Medication Instructions Recorded Confirmed Type cholecalciferol (vitamin D3) 25 1,000 unit PO DAILY 04/30/19 05/30/22 History mcg (1,000 unit) capsule (Vitamin D3) psyllium husk 3.4 gram/5.4 gram 1 tbsp PO BID 04/30/19 05/30/22 History oral powder (Metamucil) levothyroxine 75 mcg tablet 75 mcg PO DAILY #90 tabs 02/18/22 05/30/22 Rx (Synthroid) omeprazole magnesium 20 mg 20 mg PO DAILY #30 tabs 04/11/22 05/30/22 Rx tablet,delayed release norethindrone 1 mg-ethinyl 1 tablet PO DAILY 05/24/22 05/30/22 History estradiol 20 mcg (24)-iron 75 mg (4) tablet (Amada 24 Fe) Patient hx anesthesia problems: none Family hx anesthesia problems: none Results Review: All pre-operative results and documents have been reviewed as part of the pre-operative evaluation. [facility] Past Medical History Medical History Achilles tendonitis Chronic cholecystitis Chronic otitis media Hypothyroid Recurrent otitis media Surgical History Surgical History S/P cholecystectomy S/P tube myringotomy Family History Family History Sibling Hypertension Patient's brother is in good health Father Patient's father is in good health Mother Family history of diabetes mellitus in first degree relative Grandparent Family history of malignant neoplasm of breast Other Arthritis Social History Social History Social History: Smoking status: Never smoker Second hand tobacco smoke exposure: No Alcohol intake: current Drinks per week: 2 Alcohol use details: rare Substance use: never Substance use type: does not use Living arrangements: with family 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e Patient): Straight or Heterosexual Spiritual care concerns: No Anes - Eval Final PreProcedure Day of Procedure 05/30/22 08:20 Patient weight: obese Heart: regular rate and rhythm Lungs: clear to auscultation Airway: Mallampati scale class II Neurological: alert and oriented Last oral intake: >/= 8 hours ASA classification: II Emergent: no Anesthetic plan: proceed Anesthesia type and monitoring: general GIVS and standard monitoring Results Review: All pre-operative results and documents have been reviewed as part of the pre-operative evaluation. Informed Consent: The patient's anesthetic plan and its attendant risks and benefits were discussed with the patient/family/POA. Questions were solicited and answers provided to the satisfaction of the patient/family/POA.
--- NOTE | 2022-05-30 08:44 | PM.HPGS ---
History of Present Illness History of Present Illness Consent: Risks, benefits, and alternatives have been discussed and questions answered. Patient agrees to proceed with procedure. Chief complaint: Unspecified Abdominal Pain Narrative: Carolynn Le is a 46 year old female with upper abdominal pain daily but worse after bending over, no nausea, no appetite change. Review of Systems Constitutional: Constitutional: Denies headache(s) and Denies weakness Eyes: Eyes: Denies blurry vision ENT: Reports Normal hearing present, Denies headache(s) and Denies neck pain Cardiovascular: Cardiovascular: Denies chest pain and Denies dyspnea Respiratory: Respiratory: Denies dyspnea Gastrointestinal: Gastrointestinal: Reports no additional gastrointestinal complaints Genitourinary: Genitourinary: Denies dysuria Musculoskeletal: Musculoskeletal: Denies neck pain Integumentary/Breasts: Skin/Breast: Denies dry skin Neurologic: Reports Normal hearing present, Denies headache(s) and Denies weakness Psychiatric: Psychiatric: Denies anxiety Endocrine: Endocrine: Denies change in body appearance Hematologic/Lymphatic: Hematologic/Lymphatic: Denies easy bleeding Allergic/Immunologic: Allergic/Immunologic: Denies urticaria PMFSH Past Medical History Medical History (Updated 05/30/22 @ 08:45 by Atilio Bautista MD) Achilles tendonitis Chronic cholecystitis Chronic otitis media Hypothyroid Recurrent otitis media Upper abdominal pain Surgical History Surgical History S/P cholecystectomy S/P tube myringotomy Family History Family History Sibling Hypertension Patient's brother is in good health Father Patient's father is in good health Mother Family history of diabetes mellitus in first degree relative Grandparent Family history of malignant neoplasm of breast Other Arthritis Social History Social History Social History: Smoking status: Never smoker Second hand tobacco smoke exposure: No Alcohol intake: current Drinks per week: 2 Alcohol use details: rare Substance use: never Substance use type: does not use Living arrangements: with family 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e Patient): Straight or Heterosexual Spiritual care concerns: No Meds Home Medications and Allergies Home Medications Medication Instructions Recorded Confirmed Type cholecalciferol (vitamin D3) 25 1,000 unit PO DAILY 04/30/19 05/30/22 History mcg (1,000 unit) capsule (Vitamin D3) psyllium husk 3.4 gram/5.4 gram 1 tbsp PO BID 04/30/19 05/30/22 History oral powder (Metamucil) levothyroxine 75 mcg tablet 75 mcg PO DAILY #90 tabs 02/18/22 05/30/22 Rx (Synthroid) omeprazole magnesium 20 mg 20 mg PO DAILY #30 tabs 04/11/22 05/30/22 Rx tablet,delayed release norethindrone 1 mg-ethinyl 1 tablet PO DAILY 05/24/22 05/30/22 History estradiol 20 mcg (24)-iron 75 mg (4) tablet (Amada 24 Fe) Allergies Allergy/AdvReac Type Severity Reaction Status Date / Time No Known Allergies Allergy Verified 05/30/22 08:13 Vital Signs Vital Signs - 24 hr 05/30/22 07:50 Temperature 97.8 F Pulse Rate 73 Respiratory Rate 20 Blood Pressure 141/93 H Pulse Oximetry 100 Oxygen Delivery Room Air Exam Const: General: comfortable and no acute distress HENMT: Face/Nose/Sinus: Normal nares present Eyes: General: appearance normal, both eyes and all related structures Neck: Neck: no JVD Resp: Auscultation: clear to auscultation bilaterally Cardio: Rate: regular rate Rhythm: regular rhythm GI: Inspection: non-distended GI Palp: Yes
[2022-05-30 08:59] VITALS: BP 131/72; PULSE 87; RESP 16; O2SAT 100
[2022-05-30 09:09] VITALS: BP 147/89; PULSE 68; RESP 16; O2SAT 99
[2022-05-30 09:19] VITALS: BP 151/88; PULSE 62; RESP 18; O2SAT 98
--- NOTE | 2022-05-30 10:02 | WPDANESPN ---
Anes - Prog Note Post-Op Date/Time: 05/30/22 10:02 Cardiovascular status: normal Respiratory status: normal Airway patency: baseline Mental status: baseline Post-Op hydration status: normal Vital Signs: Last Vital Signs Temp 36.6 C 05/30/22 07:50 Pulse 62 05/30/22 09:19 Resp 18 05/30/22 09:19 BP 151/88 H 05/30/22 09:19 Pulse Ox 98 05/30/22 09:19 O2 Del Method Room Air 05/30/22 09:19 Pain Score (VAS): 0 I/O: Intake & Output 05/29/22 05/30/22 05/30/22 23:59 07:59 15:59 Intake Total 350 Balance 350 Patient Feedback: Patient satisfied with anesthetic care.
== END 2022-05-30 09:32 | disposition home or self-care (01) ==
PROVIDERS: PCP Family Medicine; Visit Provider Internal Medicine Gastroenterology
PROC: 0DJ08ZZ Inspection of Upper Intestinal Tract, Via Natural or Artificial Opening Endoscopic (ICD-10-PCS; CPT 43235; principal; 2022-05-30 09:00)
DX: R14.0 Abdominal distension (gaseous) (principal)
CPT/HCPCS: 43239

== ENCOUNTER 2022-05-30 09:00 | Outpatient (NON) | payer OTHER, BC, SELFPAY | END 2022-05-30 09:01 | disposition home or self-care (01) | PROVIDERS: PCP Family Medicine; Visit Provider Internal Medicine Gastroenterology | DX: R14.0 Abdominal distension (gaseous) (principal) | CPT/HCPCS: 88305 ==

== ENCOUNTER → 2022-06-21 08:51 | Outpatient (CLI) | payer OTHER, BC, SELFPAY ==
--- NOTE | ~2022-06-21 | MMUS_ITS ---
EXAMINATION: MM diagnostic howie RT w ale, US breast RT limited HISTORY: Right breast mass on screening mammogram TECHNIQUE: Additional 3-D tomosynthesis images of the right breast were performed and synthetic 2-D i mages were generated. CAD analysis was submitted and interpreted. High resolution limited right breas t ultrasound was performed. COMPARISON: 05/25/2022, 06/23/2020, 05/27/2020 FINDINGS: MAMMOGRAPHIC FINDINGS: There is a 6 mm oval, circumscribed, equal density mass in the posterior third of the central, slight ly outer breast at the 7:00 location. With spot compression, the mass appears stable when compared to prior examinations. There has been no suspicious interval change. ULTRASOUND: There is no evidence of focal abnormal solid or cystic mass in the vicinity of the mammographic findi ng in question. IMPRESSION: 1. No mammographic or sonographic evidence of malignancy. Stable right breast mass. 2. Recommend routine screening mammography in one year. BI-RADS Category 2: Benign finding(s). Reviewed, dictated and finalized at location A. IMPRESSION: 1. No mammographic or sonographic evidence of malignancy. Stable right breast mass. 2. Recommend routine screening mammography in one year. BI-RADS Category 2: Benign finding(s).
== END ==
PROVIDERS: PCP Obstetrics & Gynecology Gynecology; Visit Provider Obstetrics & Gynecology Gynecology
DX: R92.8 Other abnormal and inconclusive findings on diagnostic imaging of breast (principal)
CPT/HCPCS: 76642; 77061; 77065; G0279

== ENCOUNTER → 2022-06-21 13:49 | Outpatient (CLI) | payer OTHER, BC, SELFPAY ==
--- NOTE | ~2022-06-21 | XR_ITS ---
XR abdomen/kub 1V 06/21/2022 14:20 INDICATION: Constipation. TECHNIQUE: KUB COMPARISON: No prior studies for comparison. FINDINGS: Bowel gas pattern is normal. Moderate colonic fecal loading. There is no evidence of free a ir, mass, organomegaly, ascites or obstruction. No abnormal calculi are seen. The bones appear inta ct. There are cholecystectomy clips. IMPRESSION: 1: No acute abdominal abnormality identified. Reviewed, dictated and finalized at location A.
== END ==
PROVIDERS: PCP Nurse Practitioner; Visit Provider Nurse Practitioner
DX: K59.00 Constipation, unspecified (principal)
CPT/HCPCS: 74018

== ENCOUNTER 2022-06-21 14:24 | Outpatient (CLI) | payer OTHER, BC, SELFPAY ==
[2022-06-21 15:30] LABS: Hemoglobin 14.6 g/dL (12.0-15.0); Mean Corpuscular Hemoglobin 33.4 pg (26-34); Mean Corpuscular Volume 98.4 fl (80-100); Mean Platelet Volume 9.9 fl (7.4-10.4); Platelet Count Result 401 k/mm3 (150-375); Red Blood Count 4.37 M/mm3 (4.2-5.4); Red Cell Distribution Width 12.7 % (11.5-14.5); White Blood Count 6.5 K/mm3 (4.5-10.0)
[2022-06-21 15:46] LABS: Alanine Aminotransferase 21 U/L (6-35); Albumin Level 4.4 g/dL (3.5-5.1); Alkaline Phosphatase 66 U/L (38-126); Amylase 80 U/L (30-110); Anion Gap 6 mmol/L (8-16); Aspartate Amino Transferase 24 U/L (14-36); Bilirubin,Total 0.5 mg/dL (0.2-1.3); Blood Urea Nitrogen 12 mg/dL (7-17); CRP 0.8 mg/dL (<1.0); Calcium 9.4 mg/dL (8.4-10.2); Carbon Dioxide 28 mmol/L (22-30); Chloride 105 mmol/L (98-107); Estimated Glomerular Filt Rate > 60; Glucose 103 mg/dL (65-110); Lipase 89 U/L (23-300); Potassium 4.2 mmol/L (3.4-5.0); Sodium 139 mmol/L (137-145)
[2022-06-21 16:09] LABS: Erythrocyte Sedimentation Rate 28 mm/hr (0-20)
== END 2022-06-21 14:25 | disposition home or self-care (01) ==
LOC: ANHLAB 14:26
PROVIDERS: PCP Nurse Practitioner; Visit Provider Nurse Practitioner
DX: R10.10 Upper abdominal pain, unspecified (principal); R19.00 Intra-abdominal and pelvic swelling, mass and lump, unspecified site
CPT/HCPCS: 36415; 80053; 82150; 83690; 85027; 85652; 86140

== ENCOUNTER 2022-09-16 12:19 | Emergency (ER) | payer OTHER, BC, SELFPAY ==
--- NOTE | ~2022-09-16 | XR_ITS ---
EXAMINATION: XR chest 2V DATE: 09/16/2022 12:38 INDICATION: Productive cough TECHNIQUE: PA and lateral views of the chest are obtained. COMPARISON: None available FINDINGS: The lungs are free of acute opacities. No pleural effusion or pneumothorax. The cardiomedia stinal silhouette is normal. There is mild chronic anterior wedging in the midthoracic spine. Cholecy stectomy clips are noted. IMPRESSION: 1. No acute cardiopulmonary abnormality. Reviewed, dictated and finalized at location B.
[2022-09-16 12:27] VITALS: BP 133/105; PULSE 75; RESP 16; TEMP 37.3; O2SAT 99
--- NOTE | 2022-09-16 12:34 | ED.URI ---
HPI - URI/Sore Throat General Chief Complaint: Upper Respiratory Infection Stated Complaint: SOB/Cough Time Seen by Provider: 09/16/22 12:27 Source: patient Mode of arrival: ambulatory Limitations: no limitations History of Present Illness HPI Narrative: Carolynn is a 47-year-old female patient presenting to clinic today with complaints of a cough and shortness of breath since August 28. She reports no fever chills. Is coughing up some yellow phlegm. Reports that she is having shortness of breath on exertion. History of pneumonia in the past MD elicited complaint: sore throat and nasal congestion Related Data Home Medications Medication Instructions Recorded Confirmed cholecalciferol (vitamin D3) 25 1,000 unit PO DAILY 04/30/19 09/16/22 mcg (1,000 unit) capsule (Vitamin D3) psyllium husk 3.4 gram/5.4 gram 1 tbsp PO BID 04/30/19 09/16/22 oral powder (Metamucil) norethindrone 1 mg-ethinyl 1 tablet PO DAILY 05/24/22 09/16/22 estradiol 20 mcg (24)-iron 75 mg (4) tablet (Amada 24 Fe) Allergies Allergy/AdvReac Type Severity Reaction Status Date / Time No Known Allergies Allergy Verified 09/16/22 12:23 Review of Systems Review of Systems: Pertinent positives per HPI. Patient denies any fever, chills, rash, headache, visual changes, dizziness, chest pain, palpitations, nausea, vomiting, diarrhea, constipation, abdominal pain, or any urinary issues. PMFSH Past Medical History Medical History Abdominal mass Achilles tendonitis Bloating Chronic cholecystitis Chronic otitis media Colon cancer screening Constipation Epigastric pain Hepatic steatosis Hypothyroid Obesity Recurrent otitis media Straining during bowel movements Upper abdominal pain Surgical History Surgical History S/P cholecystectomy S/P tube myringotomy Family History Family History Sibling Hypertension Patient's brother is in good health Father Patient's father is in good health Mother Family history of diabetes mellitus in first degree relative Grandparent Family history of malignant neoplasm of breast Other Arthritis Social History Social History Social History: Smoking status: Never smoker Second hand tobacco smoke exposure: No Alcohol intake: current Drinks per week: 2 Alcohol use details: rare Substance use: never Substance use type: does not use Living arrangements: with family 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 There is no relevant family history pertinent to the patient complaint. Exam Narrative: General: Well-developed, well nourished, in no apparent distress Head: Normocephalic, atraumatic Eyes: Pupils equally round and reactive to light bilaterally, EOM intact, sclera and conjunctive clear, no discharge, lids normal Ears: TMs intact and congested, ear canals clear, no drainage, grossly hearing normal. Nose: Nares patent, clear nasal discharge, no inflammation, no sinus tenderness. Mouth: Oral pharynx red without lesions or masses, good dentition, MMM. Post nasal drip Neck: Supple, trachea midline, no enlargement of anterior or posterior cervical nodes, no thyroid masses or goiter palpable. Cardio: Regular rate and rhythm, s1 and s2 normal, no murmur appreciated. Resp: Expiratory wheezing, no rhonchi, rales, wheezing or rubs Course Course Emergency Course: Portion
== END 2022-09-16 12:59 | disposition home or self-care (01) ==
PROVIDERS: Emergency Provider Nurse Practitioner Family; PCP Family Medicine
DX: J40 Bronchitis, not specified as acute or chronic (principal); K76.0 Fatty (change of) liver, not elsewhere classified; E03.9 Hypothyroidism, unspecified; E66.9 Obesity, unspecified; Z68.30 Body mass index [BMI] 30.0-30.9, adult
CPT/HCPCS: 71046; 99213; G0463

== ENCOUNTER 2022-11-29 12:18 | Emergency (ER) | payer OTHER, BC, SELFPAY ==
--- NOTE | ~2022-11-29 | XR_ITS ---
EXAMINATION: XR elbow LT min 3V DATE: 11/29/2022 13:07 INDICATION: Left elbow pain. TECHNIQUE: 5 views of left elbow were obtained. COMPARISON: None. FINDINGS: The elbow is flexed on all views. No fracture. Joint spaces are normal. There is a large el bow joint effusion. IMPRESSION: 1. Large elbow joint effusion. No fracture identified. Reviewed, dictated and finalized at location A.
[2022-11-29 12:26] VITALS: BP 171/92; PULSE 88; RESP 18; TEMP 36.2; O2SAT 100
[2022-11-29] MEDS: KETOROLAC 30 MG/ML VIAL (*BKC) IM (13:15)
[2022-11-29 13:16] LABS: Hematocrit 42.8 % (37.0-47.0); Hemoglobin 14.4 g/dL (12.0-15.0)
[2022-11-29 13:17] LABS: Basophils Absolute Auto 0.1 K/mm3 (0.0-0.1); Basophils Percent Auto 1.1 % (0.2-1.2); Eosinophils Absolute Auto 0.1 K/mm3 (0-0.3); Eosinophils Percent Auto 1.2 % (0-4.4); Immature Granulocyte Absolute 0.04 K/mm3 (0.00-0.031); Immature Granulocyte Percent A 0.4 % (0-0.5); Lymphocytes Absolute Auto 1.95 K/mm3 (0.9-3.2); Lymphocytes Percent Auto 19.5 % (18.3-44.2); Mean Corpuscular HGB Conc 33.6 g/dl (32-36); Mean Corpuscular Hemoglobin 33.5 pg (26-34); Mean Corpuscular Volume 99.5 fl (80-100); Mean Platelet Volume 9.3 fl (7.4-10.4); Monocytes Percent Auto 10.2 % (2.6-8.5); Neutrophils Absolute Auto 6.8 K/mm3 (1.3-6.7); Neutrophils Percent Auto 67.6 % (45.5-73.1); Platelet Count Result 421 k/mm3 (150-375); Red Cell Distribution Width 12.5 % (11.5-14.5)
--- NOTE | 2022-11-29 13:21 | PC.NURSE ---
patient refused norco. provider aware
[2022-11-29 13:30] LABS: Anion Gap 9 mmol/L (8-16); Blood Urea Nitrogen 11 mg/dL (7-17); Calcium 9.9 mg/dL (8.4-10.2); Carbon Dioxide 26 mmol/L (22-30); Chloride 106 mmol/L (98-107); Estimated CRCL calculation 93 ml/min; Estimated Glomerular Filt Rate > 60; Glucose 83 mg/dL (65-110); Sodium 141 mmol/L (137-145); Uric Acid 5.1 mg/dL (2.5-7.5)
--- NOTE | 2022-11-29 13:57 | ED.GENADULT ---
HPI - General Adult General Chief complaint: Extremity Injury, Upper Stated complaint: left arm injury? Time Seen by Provider: 11/29/22 12:29 History of Present Illness HPI narrative: Carolynn Le is a 47 y/o female who presents with reports of waking up yesterday with some pain to her left elbow that has gradually become worse with swelling. She denies any known injury, no fever/chills. Pain is worse with movement. Related Data Home Medications Medication Instructions Recorded Confirmed cholecalciferol (vitamin D3) 25 1,000 unit PO DAILY 04/30/19 09/16/22 mcg (1,000 unit) capsule (Vitamin D3) psyllium husk 3.4 gram/5.4 gram 1 tbsp PO BID 04/30/19 09/16/22 oral powder (Metamucil) norethindrone 1 mg-ethinyl 1 tablet PO DAILY 05/24/22 09/16/22 estradiol 20 mcg (24)-iron 75 mg (4) tablet (Amada 24 Fe) dicyclomine 10 mg capsule 10 mg PO QID 11/01/22 11/01/22 Allergies Allergy/AdvReac Type Severity Reaction Status Date / Time No Known Allergies Allergy Verified 11/29/22 12:18 Review of Systems Review of Systems: CONSTITUTIONAL: Denies fever, chills, or sweats. EYES: Denies visual changes, redness, or discharge. ENT: Denies rhinorrhea, congestion, sore throat, or otalgia. CARDIOVASCULAR: Denies chest pain, palpitations, or edema. RESPIRATORY: Denies cough or dyspnea. GASTROINTESTINAL: Denies abdominal pain, nausea, vomiting, or diarrhea. GENITOURINARY: Denies dysuria or hematuria. SKIN: Denies rash or itching. MUSCULOSKELETAL: Denies back pain, complains of severe left elbow pain that started yesterday NEUROLOGIC: Denies headache, numbness, dizziness, or weakness. PSYCHIATRIC: Denies anxiety or depression. [facility] Past Medical History Medical History Abdominal mass Abscess Achilles tendonitis Acute bronchitis due to infection Acute maxillary sinusitis, unspecified Acute suppurative otitis media of both ears without spontaneous rupture of tympanic membranes Bloating Bronchitis CAP (community acquired pneumonia) Chronic cholecystitis Chronic otitis media Colon cancer screening Constipation Cutaneous abscess of abdominal wall Epigastric pain Hepatic steatosis Hypothyroid Hypothyroidism, unspecified Methicillin resistant Staphylococcus aureus infection as the cause of diseases classified elsewhere Mixed hyperlipidemia MRSA cellulitis Obesity Other iron deficiency anemias Otitis media, unspecified, bilateral Otitis media, unspecified, unspecified ear Recurrent otitis media Straining during bowel movements Upper abdominal pain Vitamin D deficiency, unspecified Wheezing Surgical History Surgical History S/P cholecystectomy S/P tube myringotomy Family History Family History Sibling Hypertension Patient's brother is in good health Father Patient's father is in good health Mother Family history of diabetes mellitus in first degree relative Grandparent Family history of malignant neoplasm of breast Other Arthritis Social History Social History Social History: Smoking status: Never smoker Second hand tobacco smoke exposure: No Alcohol intake: current Alcohol use details: Rarely Substance use: never Substance use type: does not use Lack of Transportation: No Lack of Food: Never True Current Housing: I Have Housing Concerned About Future Housing: No Difficulty Paying Gas/Electric Bills: No Difficulty Paying for Meds: No Currently Unemployed: No Education: Decline to Answer Difficulty w/ Childcare or Family Care: No Living arrangements: with family 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
[2022-11-29 14:15] VITALS: BP 168/84; PULSE 84; RESP 20; O2SAT 100
== END 2022-11-29 14:18 | disposition home or self-care (01) ==
PROVIDERS: Emergency Provider Nurse Practitioner Family; PCP Family Medicine
DX: M25.422 Effusion, left elbow (principal); M25.522 Pain in left elbow; E03.9 Hypothyroidism, unspecified; E55.9 Vitamin D deficiency, unspecified; Z79.51 Long term (current) use of inhaled steroids
CPT/HCPCS: 36415; 73080; 80048; 84550; 85025; 96372; 99283; J1885

== ENCOUNTER 2022-12-01 15:39 | Outpatient (NON) | payer OTHER, BC, SELFPAY | END 2022-12-01 15:40 | disposition home or self-care (01) | PROVIDERS: PCP Family Medicine; Visit Provider Orthopaedic Surgery | DX: M25.422 Effusion, left elbow (principal) | CPT/HCPCS: 87070; 87075; 87205 ==

== ENCOUNTER 2023-08-02 08:06 | Emergency (ER) | payer OTHER, BC, SELFPAY ==
--- NOTE | 2023-08-02 08:08 | ED.URI ---
HPI - URI/Sore Throat General Chief Complaint: Upper Respiratory Infection Stated Complaint: cough,sore throat,ear issue Time Seen by Provider: 08/02/23 08:08 Source: patient Mode of arrival: ambulatory Limitations: no limitations History of Present Illness HPI Narrative: Carolynn is a 47-year-old female patient presenting to the clinic today with complaints of cough, nasal congestion, sore throat, and ear pain x5 days. She reports no known fever or chills. Denies any shortness of breath or chest pain. States that she has a nonproductive cough at this time. MD elicited complaint: cough, sore throat, rhinorrhea and nasal congestion Related Data Home Medications Medication Instructions Recorded Confirmed cholecalciferol (vitamin D3) 25 1,000 unit PO DAILY 04/30/19 08/02/23 mcg (1,000 unit) capsule (Vitamin D3) norethindrone 1 mg-ethinyl 1 tablet PO DAILY 05/24/22 08/02/23 estradiol 20 mcg (24)-iron 75 mg (4) tablet (Amada 24 Fe) Allergies Allergy/AdvReac Type Severity Reaction Status Date / Time No Known Allergies Allergy Verified 08/02/23 08:19 Review of Systems Review of Systems: Pertinent positives per HPI. Patient denies any fever, chills, rash, headache, visual changes, dizziness, shortness of breath, chest pain, palpitations, nausea, vomiting, diarrhea, constipation, abdominal pain, or any urinary issues. PMFSH Past Medical History Medical History Abdominal mass Abscess Achilles tendonitis Acute bronchitis due to infection Acute maxillary sinusitis, unspecified Acute suppurative otitis media of both ears without spontaneous rupture of tympanic membranes Bloating Bronchitis CAP (community acquired pneumonia) Chronic cholecystitis Chronic otitis media Colon cancer screening Constipation Cutaneous abscess of abdominal wall Epigastric pain Hepatic steatosis Hypothyroid Hypothyroidism, unspecified Methicillin resistant Staphylococcus aureus infection as the cause of diseases classified elsewhere Mixed hyperlipidemia MRSA cellulitis Obesity Other iron deficiency anemias Otitis media, unspecified, bilateral Otitis media, unspecified, unspecified ear Recurrent otitis media Straining during bowel movements Upper abdominal pain Vitamin D deficiency, unspecified Wheezing Surgical History Surgical History S/P cholecystectomy S/P tube myringotomy Family History Family History Sibling Hypertension Patient's brother is in good health Father Patient's father is in good health Mother Family history of diabetes mellitus in first degree relative Grandparent Family history of malignant neoplasm of breast Other Arthritis Social History Social History Social History: Smoking status: Never smoker Second hand tobacco smoke exposure: No Alcohol intake: current Alcohol use details: Rarely Substance use: never Substance use type: does not use Lack of Transportation: No Lack of Food: Never True Current Housing: I Have Housing Concerned About Future Housing: No Difficulty Paying Gas/Electric Bills: No Difficulty Paying for Meds: No Currently Unemployed: No Education: Decline to Answer Difficulty w/ Childcare or Family Care: No Living arrangements: with family 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 There is no relevant family history pertinent to the patient complaint. Exam
[2023-08-02 08:22] VITALS: BP 167/84; PULSE 97; RESP 16; TEMP 37; O2SAT 99
== END 2023-08-02 08:40 | disposition home or self-care (01) ==
PROVIDERS: Emergency Provider Nurse Practitioner Family; PCP Family Medicine
DX: J06.9 Acute upper respiratory infection, unspecified (principal); E03.9 Hypothyroidism, unspecified; E78.2 Mixed hyperlipidemia; E66.9 Obesity, unspecified; Z68.31 Body mass index [BMI] 31.0-31.9, adult; E55.9 Vitamin D deficiency, unspecified
CPT/HCPCS: 87081; 87880; 99213; G0463

== ENCOUNTER 2023-10-21 09:49 | Outpatient (CLI) | payer OTHER, BC, SELFPAY ==
--- NOTE | ~2023-10-21 | MM_ITS ---
EXAMINATION: MM screening howie BI w ale HISTORY: Screening TECHNIQUE: Craniocaudal and mediolateral oblique 3-D tomosynthesis images were obtained and synthetic 2-D images were generated. CAD analysis was submitted and interpreted. COMPARISON: Comparison to multiple prior studies sequentially, with oldest reviewed study dated 05/27. BREAST PARENCHYMAL COMPOSITION: Not dense: There are scattered areas of fibroglandular density. FINDINGS: There is a developing asymmetry in the subareolar location of the left breast. The right br east is stable without evidence for malignancy. IMPRESSION: 1. Developing left breast asymmetry. 2. Additional mammographic views and possible breast ultrasound are recommended. BI-RADS Category 0: Incomplete: Needs additional imaging evaluation. Reviewed, dictated and finalized at location B. IMPRESSION: 1. Developing left breast asymmetry. 2. Additional mammographic views and possible breast ultrasound are recommended . BI-RADS Category 0: Incomplete: Needs additional imaging evaluation.
== END 2023-10-21 09:50 ==
LOC: MICIMG 09:49
PROVIDERS: PCP Nurse Practitioner Women's Health; Visit Provider Nurse Practitioner Women's Health
DX: Z12.31 Encounter for screening mammogram for malignant neoplasm of breast (principal); N64.89 Other specified disorders of breast
CPT/HCPCS: 77063; 77067

== ENCOUNTER 2024-01-08 07:52 | Outpatient (CLI) | payer OTHER, BC, SELFPAY ==
--- NOTE | ~2024-01-08 | MMUS_ITS ---
EXAMINATION: MM diagnostic howie LT w ale, US breast LT limited HISTORY: Follow-up left breast asymmetry TECHNIQUE: Additional 3-D tomosynthesis images of the left breast were performed and synthetic 2-D im ages were generated. CAD analysis was submitted and interpreted. High resolution Limited left breast ultrasound was performed. COMPARISON: None BREAST PARENCHYMAL COMPOSITION: Not dense: There are scattered areas of fibroglandular density. FINDINGS: MAMMOGRAPHIC FINDINGS: There are no suspicious masses, calcifications or architectural distortion in the left breast to sugg est malignancy. ULTRASOUND: Limited left breast ultrasound: Normal heterogeneous echotexture without focal solid or cystic mass. IMPRESSION: 1. No evidence for malignancy in the left breast. 2. Routine yearly screening mammogram and regular clinical breast examination are recommended. BI-RADS Category 1: Negative Reviewed, dictated and finalized at location B. 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 No evidence for malignancy in the left breast. 2. Routine yearly screening mammogram and regular clinical breast examination a re recommended. BI-RADS Category 1: Negative
== END 2024-01-08 07:53 | disposition home or self-care (01) ==
PROVIDERS: PCP Obstetrics & Gynecology Gynecology; Visit Provider Obstetrics & Gynecology Gynecology
DX: R92.8 Other abnormal and inconclusive findings on diagnostic imaging of breast (principal)
CPT/HCPCS: 76642; 77061; 77065; G0279